=== PATIENT | female | born 1950 | race Asian ===

== ENCOUNTER 2016-09-12 07:17 | Emergency (ER) | payer OTHER ==
[~2016-09-12] VITALS: Ht 157.5 cm; Wt 68.1 kg
[~2016-09-12 07:17] MED LIST: ASPI81TA2 PO; CYCL10B PO; FAMO40TA76 PO; TRAM50TA4 PO; ZOLP6.252 PO
[2016-09-12] MEDS ORDERED: MECLIZINE HCL 25 MG TABLET PO ONE (08:00)
[2016-09-12 12:48] VITALS: BP 136/89
== END 2016-09-12 13:06 | disposition home or self-care (01) ==
LOC: EMS 07:19
DX: R42 Dizziness and giddiness (principal)
CPT/HCPCS: 70450; 99284